=== PATIENT | male | born 2000 | race Native Hawaiian/Other Pacific Islander ===

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

== ENCOUNTER 2021-10-22 17:58 | Emergency (ER) | payer SELFPAY ==
[2021-10-22] MEDS ORDERED: IBUPROFEN 600 MG TAB PO ONE (18:34)
[2021-10-22] MEDS ORDERED: CLINDAMYCIN 300 MG CAP PO ONE (18:34)
--- NOTE | 2021-10-22 18:55 | Emergency Department Report ---
ED ENT HPI - General Chief complaint: Dental/Oral Stated complaint: DENTAL PAIN Time Seen by Provider: 10/22/21 18:21 Source: patient Mode of arrival: Ambulatory Limitations: No Limitations - History of Present Illness Initial comments: Patient is a 21-year-old male presents emergency room with complaints of left lower dental pain and left-sided facial swelling that began 4 days ago. Patient states a few months ago he had a root canal in this region. He states that he just woke up 1 morning with a facial swelling. He denies any fever, chills, vom iting, difficulty swallowing, difficulty breathing. He reports he was not able to get an appointment with the dentist until after the holidays. No past medical history. No allergies to medications. - Related Data Previous Rx's Medication Instructions Recorded Last Taken Type Ibuprofen [Motrin] 600 mg PO Q8H PRN #30 tablet 03/01/17 Unknown Rx Ondansetron [Zofran Odt] 4 mg PO QID PRN #20 tab.rapdis 03/01/17 Unknown Rx Chlorhexidine Mouthwash [Peridex] 15 ml MM BID #1 bottle 10/22/21 Unknown Rx Clindamycin [Clindamycin CAP] 300 mg PO TID 7 Days #21 capsule 10/22/21 Unknown Rx Ibuprofen [Motrin 600 MG tab] 600 mg PO Q8H PRN #20 tablet 10/22/21 Unknown Rx Allergies Allergy/AdvReac Type Severity Reaction Status Date / Time No Known Allergies Allergy Verified 10/22/21 17:59 ED Dental HPI - General Chief complaint: Dental/Oral Stated complaint: DENTAL PAIN Time Seen by Provider: 10/22/21 18:21 Source: patient Mode of arrival: Ambulatory Limitations: No Limitations - Related Data Previous Rx's Medication Instructions Recorded Last Taken Type Ibuprofen [Motrin] 600 mg PO Q8H PRN #30 tablet 03/01/17 Unknown Rx Ondansetron [Zofran Odt] 4 mg PO QID PRN #20 tab.rapdis 03/01/17 Unknown Rx Chlorhexidine Mouthwash [Peridex] 15 ml MM BID #1 bottle 10/22/21 Unknown Rx Clindamycin [Clindamycin CAP] 300 mg PO TID 7 Days #21 capsule 10/22/21 Unknown Rx Ibuprofen [Motrin 600 MG tab] 600 mg PO Q8H PRN #20 tablet 10/22/21 Unknown Rx Allergies Allergy/AdvReac Type Severity Reaction Status Date / Time No Known Allergies Allergy Verified 10/22/21 17:59 ED Review of Systems ROS: Stated complaint: DENTAL PAIN Other details as noted in HPI Comment: All other systems reviewed and negative ED Past Medical Hx - Past Medical History Previous Medical History?: No - Surgical History Past Surgical History?: No - Social History Smoking Status: Never Smoker Substance Use Type: None - Medications Home Medications: Home Medications Medication Instructions Recorded Confirmed Last Taken Type Ibuprofen [Motrin] 600 mg PO Q8H PRN #30 tablet 03/01/17 10/22/21 Unknown Rx Ondansetron [Zofran Odt] 4 mg PO QID PRN #20 tab.rapdis 03/01/17 10/22/21 Unknown Rx Chlorhexidine Mouthwash [Peridex] 15 ml MM BID #1 bottle 10/22/21 Unknown Rx Clindamycin [Clindamycin CAP] 300 mg PO TID 7 Days #21 capsule 10/22/21 Unknown Rx Ibuprofen [Motrin 600 MG tab] 600 mg PO Q8H PRN #20 tablet 10/22/21 Unknown Rx ED Physical Exam - General Limitations: No Limitations General appearance: alert, in no apparent distress - Eye Eye exam: Present: normal appearance - ENT ENT exam: Present: mucous membranes moist, other (left lower gum induration and left sided facial edema, uvula is midline, no uvular edema or deviation, no trismus, no tongue elevation, no muffled voice, no submandibular edema) - Respiratory Respiratory exam: Absent: respiratory distress, accessory muscle use - Neurological Exam Neurological exam: Present: alert, oriented X3 - Psychiatric Psychiatric exam: Present: normal affect, normal mood - Skin Skin exam: Present: warm, dry, intact ED Course Vital Signs 10/22/21 10/22/21 10/22/21 18:01 18:13 18:59 Temperature 98.5 F 98.0 F Pulse Rate 102 H 69 Respiratory 20 20 Rate Blood Pressure 125/84 134/75 [Right] O2 Sat by Pulse 100 99 100 Oximetry ED Medical Decision Making - Lab Data Vital Signs 10/22/21 10/22/21 10/22/21 18:01 18:13 18:59 Temperature 98.5 F 98.0 F Pulse Rate 102 H 69 Respiratory 20 20 Rate Blood Pressure 125/84 134/75 [Right] O2 Sat by Pulse 100 99 100 Oximetry - Medical Decision Making Patient is a 21-year-old male presents emergency room with complaints of left lower dental pain and left-sided facial swelling that began 4 days ago. Patient states a few months ago he had a root canal in this region. He states that he just woke up 1 morning with a facial swelling. He denies any fever, chills, vomiting, difficulty swallowing, difficulty breathing. He reports he was not able to get an appointment with the dentist until after the holidays. No past medical history. No allergies to medications. Vitals are stable. On exam:left lower gum induration and left sided facial edema, uvula is midline, no uvular edema or deviation, no trismus, no tongue elevation, no muffled voice, no submandibular edema. Examination appears consistent with dental abscess. No signs of Jono's or facial abscess at this time. Given that it is a holiday a nd pharmacies are closed, patient given his first doses of medication while in the emergency department. Patient given prescription for medications and discussed the importance of dental follow-up. Advised patient please take medication as prescribed. Increase your water intake. May gargle with warm salt water. Follow-up with a dentist. It is very important that you follow-up. Return to emergency room for any new or worsening symptoms. Critical care attestation.: If time is entered above; I have spent that time in minutes in the direct care of this critically ill patient, excluding procedure time. ED Disposition Clinical Impression: Dental abscess Disposition: HOME / SELF CARE / HOMELESS Is pt being admited?: No Does the pt Need Aspirin: No Condition: Stable Instructions: Dental Abscess Additional Instructions: please take medication as prescribed. Increase your water intake. May gargle with warm salt water. Follow-up with a dentist. It is very important that you follow-up. Return to emergency room for any new or worsening symptoms. Prescriptions: Clindamycin [Clindamycin CAP] 300 mg PO TID 7 Days #21 capsule Ibuprofen [Motrin 600 MG tab] 600 mg PO Q8H PRN #20 tablet PRN Reason: Pain Chlorhexidine Mouthwash [Peridex] 15 ml MM BID #1 bottle Referrals: PRIMARY CARE, [Primary Care Provider] - 3-5 Days [facility] [Outside] - 3-5 Days Time of Disposition: 18:54 Print Language: BANGLADESHI
[2021-10-22 19:02] VITALS: BP 134/75
== END 2021-10-22 19:02 | disposition home or self-care (01) ==
LOC: ED 17:58
DX: K04.7 Periapical abscess without sinus (principal)
CPT/HCPCS: 99282